=== PATIENT | female | born 1985 | race Caucasian/White ===

== ENCOUNTER 2021-01-29 01:15 | Emergency (ER) | payer MEDICARE, MEDICAID, SELFPAY ==
[2021-01-29 01:42] VITALS: BP 127/81; PULSE 81; RESP 18; TEMP 37; O2SAT 100; BMI 33.8
--- NOTE | 2021-01-29 01:46 | ED.DENTAL ---
HPI - Dental/Oral General Chief complaint: Dental/Oral Stated complaint: DENTAL PAIN Time Seen by Provider: 01/29/21 01:22 Source: patient Mode of arrival: ambulatory Limitations: no limitations History of Present Illness HPI Narrative: Patient's history of diffuse cavities broke her lower premolar yesterday woke up in morning noticed swelling of the right lower jaw which is getting worse no fever no chills Complaint: tooth pain Teeth map: 1. Cavity with tenderness and broken tooth 2. Cavity tenderness Onset (ago): day(s) (1) Duration: constant Severity: moderate Severity scale (1-10): 7 Relieving factors: nothing Exacerbating factors: nothing and cold Context: history of dental caries Related Data Previous Rx's Medication Instructions Recorded amoxicillin-pot clavulanate 1 tab PO BID #20 tab 01/29/21 [Augmentin] oxycodone 5 mg PO Q6H PRN #20 tab 01/29/21 Allergies Allergy/AdvReac Type Severity Reaction Status Date / Time acetaminophen [From VICODIN] Allergy Unknown DIFFICULTY Verified 01/29/21 01:48 BREATHING hydrocodone [From VICODIN] Allergy Unknown DIFFICULTY Verified 01/29/21 01:48 BREATHING FRUIT Allergy Unknown SWELLING Uncoded 01/29/21 01:48 Review of Systems Review of Systems: Yes all other systems are reviewed and are negative PMFSH Social History Social History Advance Directives: No Advance Directives Information Provided: No Physical Exam Vital Signs: Vital Signs: Last Vital Signs Temp 98.6 F 01/29/21 01:42 Pulse 81 01/29/21 01:42 Resp 18 01/29/21 01:42 BP 127/81 01/29/21 01:42 Pulse Ox 100 01/29/21 01:42 Body Mass Index 33.8 Const: General: no acute distress Orientation/consciousness: patient oriented x3 HENMT: Head: Yes normocephalic Ears: hearing grossly normal bilaterally Face and sinus: Yes Facial tenderness on exam of face and sinuses (Right lower mandible) Mouth: Normal oral and palatal mucosa present Teeth and gingiva: caries (Tenderness in right lower premolar area with diffuse gum swelling) Teeth image: 1. deep caries with broken tooth 2. deep caries Throat: Yes posterior oropharynx normal Eyes: General: appearance normal, both eyes and all related structures Neck: Neck: Yes normal visual inspection Resp: Effort & Inspection: normal respiratory effort Auscultation: clear to auscultation bilaterally Cardio: Rate: regular rate Rhythm: regular rhythm Heart sounds: S1 normal heart sound present and S2 normal heart sound present Neuro: General: patient oriented x3 MDM - Dental/Oral MDM Narrative Medical decision making narrative: Patient with diffuse caries tooth with local infection discharge patient on Augmentin and pain med advised to follow-up with dentist Discharge Plan Discharge Clinical Impression: Dental caries Patient Disposition: Home, Self-Care Instructions: Toothache (ED) Additional Instructions: Take antibiotics and pain medicine as advised and follow up with dentist Warm compresses Prescriptions: New amoxicillin-pot clavulanate [Augmentin] 875-125 mg tablet 1 tab PO BID Qty: 20 RF: 0 oxycodone 5 mg tablet 5 mg PO Q6H PRN (Reason: pain) Qty: 20 RF: 0
[2021-01-29] MEDS: oxyCODONE HCl Immed Release 5 MG TABLET 10 MG PO (01:51)
[2021-01-29] MEDS: Amoxicillin/Potassium Clav 875 MG TABLET PO (01:54)
== END 2021-01-29 02:40 | disposition home or self-care (01) ==
PROVIDERS: Emergency Provider Internal Medicine; PCP Internal Medicine
DX: K02.9 Dental caries, unspecified (principal); K08.89 Other specified disorders of teeth and supporting structures
CPT/HCPCS: 99283

== ENCOUNTER 2025-03-22 07:08 | Emergency (ER) | payer SELFPAY ==
[2025-03-22 07:10] VITALS: BP 142/85; PULSE 78; RESP 20; TEMP 36.4; O2SAT 98; BMI 31.8
--- NOTE | 2025-03-22 09:12 | ED_ITS ---
HPI - Eye Problem General Chief complaint: Eye Problems Stated complaint: eye irritation Time Seen by Provider: 03/22/25 09:02 Source: patient Mode of arrival: ambulatory Limitations: no limitations History of Present Illness ED Provider: Janine Harding APRN HPI Narrative: 39y female with no PMH who does use contacts into the ER with complaints of right eye swelling, redness and drainage. Per patient 1 month ago she had eyelash extensions placed. Shortly after have an in place she noticed swelling and redness of her upper eyelid. She did remove the eyelash extensions. The swelling and redness continued. She started to use warm compresses the last few days and then noticed some drainage and crusting from the eye. She denies vision changes, fevers, chills, rhinorrhea, nasal congestion, sore throat, ear pain. Related Data Previous Rx's ?Medication ?Instructions ?Recorded amoxicillin 875 mg-potassium 1 tab PO BID #20 tabs 01/29/21 clavulanate 125 mg tablet (Augmentin) oxycodone 5 mg tablet 5 mg PO Q6H PRN pain #20 tabs 01/29/21 doxycycline monohydrate 100 mg 100 mg PO BID #20 caps 03/22/25 capsule ofloxacin 0.3 % eye drops (Ocuflox) 2 drp ophthalmic (eye) QID 7 days 03/22/25 #10 mL Allergies Allergy/AdvReac Type Severity Reaction Status Date / Time acetaminophen [From VICODIN] Allergy Unknown DIFFICULTY Verified 03/22/25 07:13 BREATHING hydrocodone [From VICODIN] Allergy Unknown DIFFICULTY Verified 03/22/25 07:13 BREATHING FRUIT Allergy Unknown SWELLING Uncoded 03/22/25 07:13 Review of Systems Review of Systems: Yes all other systems are reviewed and are negative Constitutional: Constitutional: Reports no additional constitutional complaints, Denies body ache(s), Denies chills, Denies fever(s), Denies headache(s) and Denies weakness Eyes: Eyes: Reports no additional eye complaints, Denies blurry vision, Denies change in vision, Reports eye discharge, Reports irritation, Denies eye pain, Reports requires corrective lenses and Denies photophobia ENT: Reports system reviewed and no additional complaints, except as documented, Denies dizziness, Denies headache(s), Denies nasal congestion, Denies nasal discharge and Denies neck pain Cardiovascular: Cardiovascular: Reports no additional cardiovascular complaints, Denies chest pain, Denies leg edema and Denies dyspnea Respiratory: Respiratory: Reports no additional respiratory complaints, Denies cough and Denies dyspnea Gastrointestinal: Gastrointestinal: Reports no additional gastrointestinal c omplaints, Denies abdominal pain, Denies diarrhea, Denies nausea and Denies vomiting Genitourinary: Genitourinary: Reports no additional female genitourinary complaints and Denies urinary incontinence Musculoskeletal: Musculoskeletal: Reports no additional musculoskeletal complaints, Denies back pain, Denies arthralgias, Denies joint swelling, Denies neck pain, Denies numbness and Denies tingling Integumentary/Breasts: Skin/Breast: Reports system reviewed and no additional complaints, except as docu and Denies rash Neurologic: Reports system reviewed and no additional complaints, except as documented, Denies Abnormal speech present, Denies dizziness, Denies headache(s), Denies numbness, Denies tingling and Denies weakness PMFSH Past Medical History Attestation statement: The following information was validated with the patient. Source: old records reviewed and nursing notes reviewed Social History Social History Advance Directives: No Advance Directives Information Provided: Yes Physical Exam Vital Signs: Vital Signs: Last Vital Signs Temp 97.6 F 03/22/25 07:10 Pulse 78 03/22/25 07:10 Resp 20 03/22/25 07:10 BP 142/85 H 03/22/25 07:10 Pulse Ox 98 03/22/25 07:10 O2 Del Method Room Air 03/22/25 07:10 BMI result Body Mass Index 31.8 Const: General: cooperative, healthy appearing, comfortable and no acute distress Orientation/consciousness: patient oriented x3 Limitations: no limitations HEENT: Head: Yes normal to inspection Ears: hearing grossly normal bilaterally and TM's normal bilaterally General nose exam: Normal external nose present Face and sinus: Yes normal facial exam Mouth: Normal oral and palatal mucosa present Throat: Yes posterior oropharynx normal Eyes: General: appearance normal, both eyes and all related structures Visual Reis: normal visual reis by confrontation Alignment and Position: alignment normal Periorbital: periorbital findings normal Eyelids: Yes eyelid abnormality (Right upper eyelid swelling, redness with pointing and drainage) Conjunctivae: conjunctivae normal Sclerae: sclerae normal Corneas: corneas normal Pupils: Equal, round and reactive pupils present EOM: EOMs intact bilaterally Direct Ophthalmoscopy: No photophobia Neck: Neck: Yes normal visual inspection Chest: Chest palpation & inspection: normal inspection of the chest Resp: Effort & Inspection: normal respiratory effort Auscultation: clear to auscultation bilaterally Cardio: Rate: regular rate Rhythm: regular rhythm Peripheral pulses: Peripheral pulses 2+ throughout GI: Inspection: Yes normal to inspection Palpation (GI): Soft to palpation and nontender Auscultation: normal bowel sounds Back/Spine/Pelvis: Thoracic/Lumbar Spine: thoracic and lumbar spine normal to inspection Skin: General skin exam: no rashes or lesions noted Neuro: General: patient oriented x3, no focal motor deficits and normal sensation to monofilament Cranial nerves: Yes Equal, round and reactive pupils present Cognition (Neuro): normal cognition Speech: No Abnormal speech present Gait exam (Neuro): Normal gait present Motor exam (neuro): 5/5 motor strength present throughout Extrem: General: Yes normal to inspection Medical Decision Making Medical Decision Making MDM Narrative: 39y female with no PMH who does use contacts into the ER with complaints of right eye swelling, redness and drainage. Per patient 1 month ago she had eyelash extensions placed. Shortly after have an in place she noticed swelling and redness of her upper eyelid. She did remove the eyelash extensions. The swelling and redness continued. She started to use warm compresses the last few days and then noticed some drainage and crusting from the eye. She denies vision changes, fevers, chills, rhinorrhea, nasal congestion, sore throat, ear pain. Consistent with stye of right upper eyelid which does appear to be drained No pain with EOM No visual complaints PERRLA Recommend patient continue to use warm compresses and gentle massage. Also recommended eye drops and oral antibiotic with recommendations to avoid contact use and to wash hands after touching her eyes Reviewed worrisome signs and symptoms of when to return to the emergency room. Comfortable plan for discharge home. Differential Diagnosis Differential Diagnoses: The differential diagnosis associated with the presentation includes Stye Low suspicion for orbital cellulitis, conjunctivitis, periorbital cellulitis, acute glaucoma Admission/Observation Consideration of admission/observation: Escalation of care including admission/observation considered Tests considered The following testing was considered but not selected: Clinical exam is not consistent with orbital cellulitis requiring a CT imaging Prescription Management I considered prescription management with: Antibiotic Discharge Plan Discharge Clinical Impression: Hordeolum externum (stye) Patient Disposition: Home, Self-Care Instructions: Edmund (ED) Additional Instructions: Continue warm compresses and gentle massage Return for vision change, fever, inability to move eye Use glasses this week not your contacts Buy new eye makeup Wash hands with touching your eyes Prescriptions: New ofloxacin [Ocuflox] 0.3 % drops 2 drp ophthalmic (eye) QID 7 Days Qty: 10 0RF doxycycline monohydrate 100 mg capsule 100 mg PO BID Qty: 20 0RF No Action amoxicillin-pot clavulanate [Augmentin] 875-125 mg tablet 1 tab PO BID Qty: 20 0RF oxycodone 5 mg tablet 5 mg PO Q6H PRN (Reason: pain) Qty: 20 0RF Referrals: Roberto Carlos Clay III, MD [Primary Care Provider] - 1 week Print Language: Citizen Of [place]
[2025-03-22 09:59] VITALS: BP 142/85; PULSE 78; RESP 20; TEMP 36.4; O2SAT 98
== END 2025-03-22 10:06 | disposition home or self-care (01) ==
PROVIDERS: Emergency Provider Emergency Medicine; PCP Internal Medicine
DX: H00.011 Hordeolum externum right upper eyelid (principal); H00.012 Hordeolum externum right lower eyelid; H57.11 Ocular pain, right eye
CPT/HCPCS: 99283; 99284